=== PATIENT | female | born 1935 | race Caucasian/White ===

== ENCOUNTER 2019-07-13 19:54 | Inpatient (IN) | payer MEDICARE ==
[~2019-07-13] VITALS: Ht 152.4 cm; Wt 58.1 kg
[2019-07-13 20:44] LABS: BASOPHILS # (AUTO) 0.1 (0.0-0.1); BASOPHILS % 0.3 % (0.0-1.0); EOSINOPHILS % 0.3 % (0.0-6.0); HEMATOCRIT 41.7 % (34.2-44.1); HEMOGLOBIN 13.1 g/dL (12.0-16.0); LYMPHOCYTES # (AUTO) 1.3 (1.0-3.2); LYMPHOCYTES % 9.3 % (18.0-39.1); MEAN CORPUSCULAR HEMOGLOBIN 28.1 pg (28-32); MEAN CORPUSCULAR HGB CONC 31.4 g/dL (31-35); MEAN CORPUSCULAR VOLUME 89.3 fL (81-99); MONOCYTES # (AUTO) 1.1 (0.2-0.8); MONOCYTES % 7.5 % (4.4-11.3); NEUTROPHILS # (AUTO) 11.8 (2.1-6.9); NEUTROPHILS % 82.2 % (38.7-80.0); PLATELET COUNT 324 x10e3/uL (140-360); RED BLOOD COUNT 4.67 x10e6/uL (3.6-5.1); RED CELL DISTRIBUTION WIDTH 14.1 % (11.7-14.4)
[2019-07-13 20:54] LABS: INR 0.87; PROTHROMBIN TIME 12.3 seconds (11.9-14.5)
[2019-07-13 20:56] LABS: BILIRUBIN,URINE NEGATIVE (NEGATIVE); CLARITY,URINE SL CLOUDY (CLEAR); KETONES,URINE NEGATIVE (NEGATIVE); LEUKOCYTE ESTERASE ,URINE TRACE (NEGATIVE); NITRITE,URINE NEGATIVE (NEGATIVE); PROTEIN,URINE DIPSTICK NEGATIVE (NEGATIVE); URINE UROBILINOGEN 0.2 mg/dL (0.2 - 1)
[2019-07-13 20:58] LABS: COLOR,URINE YELLOW (YELLOW)
[2019-07-13 21:00] LABS: BACTERIA,URINE MANY /HPF; EPITHELIAL CELLS,URINE FEW /LPF
--- NOTE | 2019-07-13 21:00 | Diagnostic Imaging Report ---
EXAMINATION: CHEST SINGLE (PORTABLE) INDICATION: Cough, fever COMPARISON: None FINDINGS: AP view TUBES and LINES: None. LUNGS/PLEURA: Lungs are well inflated. Pulmonary vascular prominence. Peribronchial cuffing. Hazy opacity in the left lower lung. No pneumothorax. HEART AND MEDIASTINUM: The cardiomediastinal silhouette is borderline enlarged. Curvilinear calcification along the left heart border likely a pericardial calcification. Aortic arch calcifications.. Aortic valve replacement. BONES AND SOFT TISSUES: No acute osseous lesion. Soft tissues are unremarkable. Sternotomy wires in place. UPPER ABDOMEN: No free air under the diaphragm. IMPRESSION: Borderline cardiomegaly and pulmonary vascular congestion Hazy opacity in the left lower lung may be due to atelectasis/scarring, although pneumonia is possible in the proper clinical setting. A trace left pleural effusion is possible. Signed by: Quinton Navarro DO on 07/13/2019 8:57 PM
[2019-07-13] MEDS ORDERED: SODIUM CHLORIDE 0.9% 1000ML 1,000 ML IV STA ×2 (21:02→23:12)
[2019-07-13 21:04] LABS: ALBUMIN 3.2 g/dL (3.5-5.0); ALBUMIN/GLOBULIN RATIO 0.8 (0.8-2.0); ANION GAP 16.4 mmol/L (8-16); CALCIUM 8.4 mg/dL (8.4-10.2); CREATININE, SERUM 0.92 mg/dL (0.57-1.11); POTASSIUM 4.4 mmol/L (3.5-5.1)
[2019-07-13] MEDS: CEFEPIME 1GM/NS 0.9% 50 ML 50 ML IV SCH (21:49)
--- OUTSIDE RECORDS SUMMARY | 2019-07-13 21:58 | XMS REPORT ---
[facility] Address Unknown Phone Unavailable Care Team Providers Care Apple Sorter Name Role Phone Giovanna FLORES Unavailable Unavailable Problems This patient has no known problems. Allergies, Adverse Reactions, Alerts This patient has no known allergies or adverse reactions. Medications This patient has no known medications. Results Test Description Test Time Test Comments Text Results Atomic Results Result Comments CHEST SINGLE (PORTABLE) 2019-07-13 20:53:00 [place] [address] Patient Name: IRVIN TIERNEY MR #: [id number] : 1935 Age/Sex: 84/F Req #: [id number] Adm Physician: Ordered by: ANGELINE FLORES MD Report #: [id number] Location: ER Room/Bed: Procedure: [id number] DX/CHEST SINGLE (PORTABLE) Exam Date: 07/13/19 Exam Time: 2019 REPORT STATUS: Signed EXAMINATION: CHEST SINGLE (PORTABLE) INDIC ATION: Cough, fever COMPARISON: None FINDINGS: AP view TUBES and LINES: None. LUNGS/PLEURA: Lungs are well inflated. Pulmonary vascular prominence. Peribronchial cuffing. Hazy opacity in the left lower lung. No pneumothorax. HEART AND MEDIASTINUM: The cardiomediastinal silhouette is borderline enlarged. Curvilinear calcification along the left heart border likely a pericardial calcification. Aortic arch calcifications.. Aortic valve replacement. BONES AND SOFT TISSUES: No acute osseous lesion. Soft tissues are unremarkable. Sternotomy wires in place. UPPER ABDOMEN: No free air under the diaphragm. IMPRESSION: Borderline cardiomegaly and pulmonary vascular congestion Hazy opacity in the left lower lung may be due to atelectasis/scarring, although pneumonia is possible in the proper clinical setting. A trace left pleural effusion is possible. Signed by: Quinton Navarro DO on 07/13/2019 8:57 PM Dictated By: QUINTON NAVARRO DO 56 Transcribed By: DONG on 07/13/192056 COPY TO: ANGELINE FLORES MD
[2019-07-13] MEDS ORDERED: ACETAMINOPHEN 325 MG TAB PO ONE (22:30)
[2019-07-13] MEDS: AZITHROMYCIN 500MG/NS 250 ML 250 ML IV SCH (22:33)
--- NOTE | 2019-07-13 23:10 | NUR ---
Pt admitted to room 200 via stretcher, from home. Pt 2 nurses and 1 PCT transferred Pt to bed from stretcher with extensive assist x1. Pt Russian speaking alert to name, date, and diagnosis: PNA, sepsis, UTI. Pt pleasant and fidgety, c/o mod pain in left amputee stump, repositioned in bed. Per family/patient legally blind. O2 via NC @2L, sat 96%. Incontinent B/B, wears diaper and Purewick in place. Bowel sounds active x4 quads, last BM 07/12; small, brown, formed. Appetite stable, able to feed self. Sacrum redness, redness abdominal folds, generalized skin irritation. Oriented to room, call laguna within reach. Will continue to monitor.
[2019-07-13] MEDS ORDERED: SODIUM CHLORIDE 0.9% 1000ML 1,000 ML IV ONE (23:15)
[2019-07-13] MEDS ORDERED: FUROSEMIDE INJ 10 MG/ML 2 ML VIAL IV ONE (23:30)
[2019-07-13] MEDS ORDERED: SIMVASTATIN40 MG PO (23:41)
[2019-07-13] MEDS ORDERED: PLAVIX75 MG PO (23:41)
[2019-07-13] MEDS ORDERED: CAPTOPRIL25 MG PO (23:41)
[2019-07-13] MEDS ORDERED: ULTRAM50 MG PO (23:41)
[2019-07-13] MEDS ORDERED: GABAPENTIN300 MG PO (23:41)
[2019-07-13] MEDS ORDERED: NOVOLOG100 UNIT/1 (23:41)
[2019-07-13] MEDS ORDERED: OMEPRAZOLE40 MG (23:41)
[2019-07-13] MEDS ORDERED: DEXTROSE 50% SYRINGE 50 ML IV PRN (23:45)
[2019-07-13] MEDS ORDERED: FUROSEMIDE INJ 10 MG/ML 4 ML VIAL IV ONE (23:45)
--- NOTE | 2019-07-13 23:45 | NUR ---
Patient to receive flu vaccine when afebrile, continuous low grade temp 100.3 with body aches.
[2019-07-13 23:53] VITALS: BP 143/63
[2019-07-14] VITALS (9 sets, daily range): BP systolic 114–182; BP diastolic 48–76
[2019-07-14] MEDS ORDERED: INFLUENZA VIRUS VAC SPLIT INJ 0.5 ML SYR IM SCH (00:28)
[2019-07-14] MEDS ORDERED: FUROSEMIDE INJ 10 MG/ML 4 ML VIAL IV ONE (00:45)
[2019-07-14] MEDS ORDERED: ONDANSETRON HCL 4 MG ORAL DISINTEGRATING TAB PO PRN ×2 (04:15→10:30)
--- NOTE | 2019-07-14 04:15 | NUR ---
Patient c/o generalized pain and nausea. Received order from Nadine MUÑOZ continue home tramadol prn and Zofran 2mg PO q6hrs prn.
[2019-07-14] MEDS: TRAMADOL HCL 50 MG TAB PO PRN ×2 (05:00→14:00)
[2019-07-14 05:10] LABS: BASOPHILS # (AUTO) 0.1 (0.0-0.1); BASOPHILS % 0.4 % (0.0-1.0); EOSINOPHILS % 0.1 % (0.0-6.0); HEMATOCRIT 39.7 % (34.2-44.1); HEMOGLOBIN 12.2 g/dL (12.0-16.0); LYMPHOCYTES # (AUTO) 1.8 (1.0-3.2); LYMPHOCYTES % 11.3 % (18.0-39.1); MEAN CORPUSCULAR HEMOGLOBIN 27.9 pg (28-32); MEAN CORPUSCULAR HGB CONC 30.7 g/dL (31-35); MEAN CORPUSCULAR VOLUME 90.6 fL (81-99); MONOCYTES # (AUTO) 1.3 (0.2-0.8); MONOCYTES % 7.8 % (4.4-11.3); NEUTROPHILS # (AUTO) 12.9 (2.1-6.9); NEUTROPHILS % 79.8 % (38.7-80.0); PLATELET COUNT 250 x10e3/uL (140-360); RED BLOOD COUNT 4.38 x10e6/uL (3.6-5.1)
[2019-07-14 05:31] LABS: ANION GAP 17.6 mmol/L (8-16); BLOOD UREA NITROGEN 21 mg/dL (7-26); BUN/CREATININE RATIO 27 (6-25); CALCIUM 8.2 mg/dL (8.4-10.2); CARBON DIOXIDE 20 mmol/L (22-29); CHLORIDE 103 mmol/L (98-107); CREATININE, SERUM 0.77 mg/dL (0.57-1.11); EST GLOMERULAR FILTRATION RATE > 60 ML/MIN (60-); GLUCOSE 268 mg/dL (74-118); POTASSIUM 3.6 mmol/L (3.5-5.1); SODIUM 137 mmol/L (136-145)
--- NOTE | 2019-07-14 06:40 | NUR ---
Patient c/o severe phantom pains in bilateral stumps. Daughter stated to call doctor for a stronger pain medication. Called Nadine MUÑOZ for orders. Patient refused morphine and Tylenol#3 suggested by Nadine MUÑOZ. Patient stated she does not want anymore pain medication. Patient stated she will wait for next dosage of Tramadol. Patient repositioned. Family at bedside. Call laguna within reach.
[2019-07-14] MEDS: INSULIN LISPRO 100 UNIT/1 ML 3ML VIAL SQ SCH ×4 (07:30→19:56)
[2019-07-14] MEDS ORDERED: ACETAMINOPHEN 325 MG TAB PO PRN ×2 (08:15→10:30)
[2019-07-14] MEDS: ACETAMINOPHEN 325 MG TAB PO PRN (09:30)
[2019-07-14] MEDS: AZITHROMYCIN 500MG/NS 250 ML 250 ML IV SCH (09:47)
--- NOTE | 2019-07-14 10:47 | History and Physical ---
PRIMARY CARE PHYSICIAN: Dr. Eliazar Carnes. CHIEF COMPLAINT: Bilateral stump pain. Cough, fever, pneumonia, and urinary tract infection. HISTORY OF PRESENT ILLNESS: The patient is an 84-year-old female with urinary incontinent. She had right BKA, left AKA, chronic pain, came in with increasing cough, fever, and shortness of breath. The patient's chest x-ray shown possible pneumonia. She has also had urinary tract infection. Lactic acid is elevated. The patient is otherwise stable as planned. She is comfortable. She is admitted for further treatment. 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 Peripheral vascular disease, hypertension, and dyslipidemia. PAST SURGICAL HISTORY: Right BKA and left AKA. SOCIAL HISTORY: The patient does not smoke or use alcohol. No regular drugs. ALLERGIES: NO KNOWN ALLERGIES. HOME MEDICATIONS: List is reviewed. REVIEW OF SYSTEMS: As mentioned above. PHYSICAL EXAMINATION: VITAL SIGNS: Temperature is 98, blood pressure 114/48, pulse rate is 95, and respirations 18. GENERAL: The patient is not in acute distress. She is awake. HEENT: Normocephalic and atraumatic. Pupils reactive. Anicteric. NECK: Supple grossly. PULMONARY: Diminished breath sounds with some courses and rhonchi. CARDIOVASCULAR: S1, S2. Regular rate and rhythm. ABDOMEN: Soft, no distention. EXTREMITIES: Right BKA and left AKA. NEUROLOGIC: No focal deficit. LABORATORY DATA: Sodium is 137, potassium 3.6, chloride 103, bicarb 20, BUN 21, creatinine 0.7, glucose 268. WBC is 16, hemoglobin 12.8, hematocrit 39.7, and platelets is 250. Chest x-ray, possible bronchitis, pneumonia. Urinalysis, leukocyte esterase trace, 2+ glucose, many bacteria. Urine culture preliminary gram-negative bacilli. IMPRESSION: 1. Sepsis with lactic acidosis and low-grade fever. No shock. 2. Urinary tract infection. 3. Possible pneumonia. 4. Multiple baseline problems. PLAN: IV antibiotics. Fluid already given. We will resume home medication. Check urine and blood culture sensitivity. We will follow up on the patient's pain control. MD RONALD Rubio/JUDY /[id number]
[2019-07-14] MEDS: SENNOSIDES 8.6 MG TAB PO SCH ×2 (14:08→16:23)
[2019-07-14] MEDS: GABAPENTIN 300 MG CAP PO SCH ×2 (16:23→20:08)
[2019-07-14] MEDS: CAPTOPRIL 25 MG TAB PO SCH (16:23)
[2019-07-14] MEDS: HYDROCODONE/APAP 5MG-325MG TAB PO PRN (20:08)
[2019-07-14] MEDS: SIMVASTATIN 40 MG TAB PO SCH (20:08)
[2019-07-14] MEDS: CEFEPIME 1GM/NS 0.9% 50 ML 50 ML IV SCH (22:39)
[2019-07-15] VITALS (9 sets, daily range): BP systolic 126–146; BP diastolic 54–90
[2019-07-15] MEDS: HYDROCODONE/APAP 5MG-325MG TAB PO PRN (04:47)
[2019-07-15 05:14] LABS: BASOPHILS # (AUTO) 0.1 (0.0-0.1); BASOPHILS % 0.4 % (0.0-1.0); EOSINOPHILS # (AUTO) 0.1 (0.0-0.4); EOSINOPHILS % 0.6 % (0.0-6.0); HEMATOCRIT 34.4 % (34.2-44.1); HEMOGLOBIN 10.8 g/dL (12.0-16.0); LYMPHOCYTES # (AUTO) 2.2 (1.0-3.2); LYMPHOCYTES % 16.7 % (18.0-39.1); MEAN CORPUSCULAR HEMOGLOBIN 28.1 pg (28-32); MEAN CORPUSCULAR HGB CONC 31.4 g/dL (31-35); MEAN CORPUSCULAR VOLUME 89.6 fL (81-99); MONOCYTES # (AUTO) 1.2 (0.2-0.8); MONOCYTES % 8.9 % (4.4-11.3); NEUTROPHILS # (AUTO) 9.7 (2.1-6.9); NEUTROPHILS % 73.1 % (38.7-80.0); PLATELET COUNT 221 x10e3/uL (140-360); RED BLOOD COUNT 3.84 x10e6/uL (3.6-5.1); RED CELL DISTRIBUTION WIDTH 14.2 % (11.7-14.4)
[2019-07-15 05:30] LABS: ANION GAP 12.5 mmol/L (8-16); BLOOD UREA NITROGEN 19 mg/dL (7-26); BUN/CREATININE RATIO 28 (6-25); CALCIUM 7.9 mg/dL (8.4-10.2); CARBON DIOXIDE 23 mmol/L (22-29); CHLORIDE 101 mmol/L (98-107); CREATININE, SERUM 0.69 mg/dL (0.57-1.11); EST GLOMERULAR FILTRATION RATE > 60 ML/MIN (60-); GLUCOSE 212 mg/dL (74-118); POTASSIUM 3.5 mmol/L (3.5-5.1); SODIUM 133 mmol/L (136-145)
[2019-07-15] MEDS: INSULIN LISPRO 100 UNIT/1 ML 3ML VIAL SQ SCH ×4 (08:00→21:00)
[2019-07-15] MEDS: GABAPENTIN 300 MG CAP PO SCH ×3 (08:20→20:35)
[2019-07-15] MEDS: AZITHROMYCIN 500MG/NS 250 ML 250 ML IV SCH (08:20)
[2019-07-15] MEDS: SENNOSIDES 8.6 MG TAB PO SCH ×2 (08:21→16:40)
[2019-07-15] MEDS: CLOPIDOGREL BISULFATE 75 MG TAB PO SCH (08:21)
[2019-07-15] MEDS: PANTOPRAZOLE SOD 40 MG TABEC PO SCH (08:21)
[2019-07-15] MEDS: CAPTOPRIL 25 MG TAB PO SCH (08:30)
[2019-07-15] MEDS: TRAMADOL HCL 50 MG TAB PO PRN (09:01)
[2019-07-15] MEDS: LORATADINE 10 MG TAB PO SCH (09:58)
[2019-07-15] MEDS: BENZONATATE 100 MG CAP PO SCH ×3 (09:58→20:35)
[2019-07-15] MEDS ORDERED: GUAIFENESIN/CODEINE 10 ML CUP PO PRN (10:00)
[2019-07-15] MEDS ORDERED: ALBUTEROL/IPRATROPIUM 3 ML NEB NEB PRN (10:00)
--- NOTE | 2019-07-15 10:44 | NUR ---
WOUND CARE NURSE INITIAL CONSULTATION. 84 YEAR OLD FEMALE ADMITTED TO [facility] WITH PNEUMONIA, UTI AND SEVERE SEPSIS. HEAD TO TOE SKIN ASSESSMENT PERFORMED TODAY. PT PRESENTS WITH BLANCHABLE REDNESS TO SACRUM, ALLEVYN FOAM IN PLACE. HEALED OLD RIGHT BKA AND LEFT AKA. THERE ARE NO OTHER AREAS OF CONCERN NOTED AT THIS TIME. NO S/S OF INFECTION PRESENT. PT REQUIRES MINIMAL ASSISTANCE TO REPOSITION. PT AND FAMILY AT BEDSIDE EDUCATED ON PLAN OF CARE AND PRESSURE RELIEF. INSTRUCTED TO REPOSITION EVERY 2 HOUR AND LIMIT CHAIR TIME AT HOME TO NO MORE THAT TWO HOURS AT A TIME. BOTH STATE UNDERSTANDING. LABS: WBC: 13.27 HGB: 10.8 ALB: 3.2 RECOMMENDATIONS: REPOSITION PT EVERY TWO HOURS AND PRN. CONTINUE WITH ALLEVYN FOAM TO SACRUM FOR ULCER PREVENTION AND MONITOR DAILY. CONTINUE WITH ALTERNATING LOW AIR LOSS MATTRESS. THANKS FOR THIS CONSULTATION. Addendum: 07/15/19 at 1051 by Kat Bhatia RN Amended: Links added.
[2019-07-15] MEDS: ALBUTEROL/IPRATROPIUM 3 ML NEB NEB SCH ×2 (11:40→15:14)
[2019-07-15] MEDS: GUAIFENESIN 200 MG/10 ML UDC PO SCH ×3 (12:04→23:49)
--- NOTE | 2019-07-15 13:04 | Diagnostic Imaging Report ---
EXAM: CT Chest WITHOUT intravenous contrast 07/15/2019 9:46 AM INDICATION: Shortness of breath COMPARISON: Chest radiograph of 07/13/2019 TECHNIQUE: Chest was scanned utilizing a multidetector helical scanner from the lung apex through the level of the adrenal glands without administration of IV contrast. Coronal and sagittal reformations were obtained. Routine protocol was performed. IV CONTRAST: None RADIATION DOSE: Total DLP: 499.5 mGy*cm. Dose modulation, iterative reconstruction, and/or weight based adjustment of the mA/kV was utilized to reduce the radiation dose to as low as reasonably achievable. COMPLICATIONS: None FINDINGS: LINES/ TUBES: None. LUNGS AND AIRWAYS: The central airways are patent. No focal consolidation or pulmonary edema. Bibasilar left greater than right dependent subsegmental atelectasis. No suspicious pulmonary nodules. PLEURA: No pleural effusion or pneumothorax. HEART AND MEDIASTINUM: 1.5 cm hypodense nodule in the left thyroid lobe. No supraclavicular lymphadenopathy. No mediastinal or hilar lymphadenopathy. Mild multichamber cardiomegaly. No pericardial effusion. Atherosclerotic calcifications of the coronary arteries, thoracic aorta and great vessels. UPPER ABDOMEN: Limited noncontrast images of the upper abdomen demonstrate punctate calcified granulomas in the liver. No other focal abnormality of the partially visualized liver, spleen, pancreas, adrenals. 3 mm nonobstructive left upper pole renal calculus. BONES: The visualized bony thorax is within normal limits. Median sternotomy wires intact. SOFT TISSUES: Unremarkable. IMPRESSION: No focal pneumonia or pulmonary edema. Mild cardiomegaly. 1.5 cm left thyroid nodule. Recommend follow-up dedicated thyroid ultrasound for further evaluation. Atherosclerotic arterial calcifications including of the coronary arteries. Signed by: Sydni Goncalves MD on 07/15/2019 1:01 PM
[2019-07-15] MEDS: FLUTICASONE PROPIONATE NASAL SPRAY NS SCH (17:33)
[2019-07-15] MEDS: SIMVASTATIN 40 MG TAB PO SCH (20:35)
[2019-07-15] MEDS: CEFEPIME 1GM/NS 0.9% 50 ML 50 ML IV SCH (20:35)
[2019-07-16] VITALS (7 sets, daily range): BP systolic 119–184; BP diastolic 55–82
[2019-07-16] MEDS: GUAIFENESIN 200 MG/10 ML UDC PO SCH ×3 (05:00→17:52)
[2019-07-16] MEDS: ALBUTEROL/IPRATROPIUM 3 ML NEB NEB SCH ×2 (07:00→14:10)
--- NOTE | 2019-07-16 07:00 | NUR ---
RCD PT AT BED PT IS ALERT AND ORIENTED PT RESTING ON BED NO SIGNS OF ANY DISTRESS NOTED IV PATENT BY SALINE FLUSH BED LOW AND LOCKED CALL LIGHT IN REACH
[2019-07-16] MEDS: INSULIN LISPRO 100 UNIT/1 ML 3ML VIAL SQ SCH ×4 (07:30→20:30)
[2019-07-16] MEDS: BENZONATATE 100 MG CAP PO SCH ×3 (09:00→20:30)
[2019-07-16] MEDS: AZITHROMYCIN 500MG/NS 250 ML 250 ML IV SCH (09:00)
[2019-07-16] MEDS: SENNOSIDES 8.6 MG TAB PO SCH ×2 (09:00→17:00)
[2019-07-16] MEDS: PANTOPRAZOLE SOD 40 MG TABEC PO SCH (09:00)
[2019-07-16] MEDS: FLUTICASONE PROPIONATE NASAL SPRAY NS SCH ×2 (09:00→17:00)
[2019-07-16] MEDS: CLOPIDOGREL BISULFATE 75 MG TAB PO SCH (09:00)
[2019-07-16] MEDS: GABAPENTIN 300 MG CAP PO SCH ×3 (09:00→20:30)
[2019-07-16] MEDS: LORATADINE 10 MG TAB PO SCH (09:00)
[2019-07-16] MEDS ORDERED: SODIUM CHLORIDE 0.9% 250ML 250 ML ONE (10:27)
--- NOTE | 2019-07-16 18:44 | NUR ---
PT RESTING ON BED BED SIDE REPORT GIVEN TO ONCOMING NURSE
--- NOTE | 2019-07-16 19:00 | NUR ---
Patient visited in room during nursing rounds. Patient alert and oriented x3. Daughter at bedside. Pt on bedrest. Pt with Left AKA and Right BKA. Pt legally blind on both eyes. V/S stable. Pt on scheduled IV antibiotics. Call laguna within reach.
[2019-07-16] MEDS: SIMVASTATIN 40 MG TAB PO SCH (20:30)
[2019-07-16] MEDS: CEFEPIME 1GM/NS 0.9% 50 ML 50 ML IV SCH (20:40)
[2019-07-16] MEDS: TRAMADOL HCL 50 MG TAB PO PRN (20:46)
--- NOTE | 2019-07-16 23:30 | NUR ---
Pt c/o lower abdominal pressure. Bladder scan performed and revealed > 1000 ml. Daughter at bedside. Pt and daughter informed possibility of early catheter insertion. Will call and obtain order from Dr. Graves.
--- NOTE | 2019-07-16 23:36 | NUR ---
Called Dr. Graves and informed pt c/o lower abd pressure and bladder scan revealed > 1L. MD ordered to place early catheter.
--- NOTE | 2019-07-16 23:45 | NUR ---
Floyd catheter (16fr) inserted. Urine output was clear yellow urine. Total output at this time was 1,300ml. Pt stated she felt immediate relief.
[2019-07-17] MEDS: ACETAMINOPHEN 325 MG TAB PO PRN (00:15)
[2019-07-17 00:18] VITALS: BP 121/60
[2019-07-17 04:15] VITALS: BP 102/51
[2019-07-17] MEDS: GUAIFENESIN 200 MG/10 ML UDC PO SCH ×3 (06:29→11:48)
[2019-07-17 07:41] VITALS: BP 157/67
[2019-07-17] MEDS: INSULIN LISPRO 100 UNIT/1 ML 3ML VIAL SQ SCH ×2 (07:54→11:58)
[2019-07-17] MEDS: BENZONATATE 100 MG CAP PO SCH ×2 (08:13→15:07)
[2019-07-17] MEDS: FLUTICASONE PROPIONATE NASAL SPRAY NS SCH (08:13)
[2019-07-17] MEDS: GABAPENTIN 300 MG CAP PO SCH ×2 (08:13→15:07)
[2019-07-17] MEDS: AZITHROMYCIN 500MG/NS 250 ML 250 ML IV SCH (08:13)
[2019-07-17] MEDS: LORATADINE 10 MG TAB PO SCH (08:13)
[2019-07-17] MEDS: PANTOPRAZOLE SOD 40 MG TABEC PO SCH (08:13)
[2019-07-17] MEDS: CLOPIDOGREL BISULFATE 75 MG TAB PO SCH (08:13)
[2019-07-17 08:14] VITALS: BP 157/67
--- NOTE | 2019-07-17 08:14 | NUR ---
Patient up in bed, eating breakfast, not in any distress, early is intact
[2019-07-17] MEDS: TRAMADOL HCL 50 MG TAB PO PRN (08:45)
[2019-07-17] MEDS: SENNOSIDES 8.6 MG TAB PO SCH (09:00)
--- NOTE | 2019-07-17 10:40 | NUR ---
Visit made by the Spiritual Care Department Pastoral Visitor, Lauren Ceja. PV provided prayer, hospitality, and communion. Pastoral Visitor informed pt/family of the scope of Surgical Device Sales Representative Services and availability. CHARLEY BUSTOS [employer]erry[employer] Spiritual Care Department O: [phone] Pager: [phone] ([phone] number calling from)
[2019-07-17] MEDS: CEPHALEXIN 500 MG CAP PO SCH ×2 (11:11→14:00)
[2019-07-17 11:49] VITALS: BP 120/69
--- NOTE | 2019-07-17 13:42 | NUR ---
Referral for home health sent to [facility]. / Referral for DME (sliding board and BSC) sent to [facility]. Rodrigo banegas [facility] was notified of referral.
--- NOTE | 2019-07-17 14:04 | NUR ---
Received call from [facility] that they are not in network with pt's insurance. Referral was forwarded to [facility]. Casey with [facility] was notified. Stated that they will have to get insurance approval and DME will have to be delivered to pt's house. CM updated pt's daughter at bedside.
--- NOTE | 2019-07-17 14:08 | NUR ---
Received call from Mey Foss with [facility]. States they will accept pt. Informed her anticipated discharge for today. They will see pt tomorrow. HOME HEALTH DISCHARGE NOTE PATIENT ADDRESS WHERE SERVICE WILL BE RECEIVED: [facility] [place] [address] [place] [address] PATIENT CONTACT NUMBER: [phone] NAME OF HOME HEALTH COMPANY: [facility] TELEPHONE/FAX NUMBER OF COMPANY: P [phone] / F [phone] ADDRESS OF COMPANY: [address] [place] [address] [place] [address] SERVICES TO RECEIVE: SN, PT, OT ANTICIPATED DATE SERVICES WILL BEGIN: July 18, 2019 Please call the company above if you have not received a call to schedule a home visit within 24 hours of discharge.
--- NOTE | 2019-07-17 15:30 | NUR ---
DR Moctezuma here for rounds stated patient can go home with early catheter and follow up with him in 2 weeks for urodynamics, Explained to daughter regarding early care, she verbalized understanding, handout given
[2019-07-17 15:59] VITALS: BP 141/65
[2019-07-17] MEDS ORDERED: KEFLEX500 MG PO (17:08)
[2019-07-17] MEDS ORDERED: SENNA LAXATIVE8.6 MG PO (17:08)
[2019-07-17] MEDS ORDERED: CLARITIN-D 241 EACH PO (17:09)
[2019-07-17] MEDS ORDERED: TESSALON PERLE100 MG PO (17:10)
--- NOTE | 2019-07-17 17:32 | Consultation ---
DATE OF CONSULTATION: 07/17/2019 Urology Consultation. REASON FOR CONSULTATION: Urinary retention for 1300 mL. HISTORY OF PRESENT ILLNESS: Brandy Carnes is an 84-year-old woman who denies previous urological evaluation. The patient has had both urge and stress type urinary incontinence. The patient was currently admitted for pneumonia. She had some constipation and this was managed and she had a bowel movement yesterday. Yesterday, however, she complained of severe lower abdominal pain. Floyd catheter was placed revealing 1300 mL of urinary retention. The patient denies previous history of urinary tract infections, yet she has had urinary tract infection during this hospitalization. She denies any previous urolithiasis or any urological evaluation. PAST MEDICAL AND SURGICAL HISTORY: 1. Bilateral amputee with right BKA and left AKA. 2. Diabetes mellitus. 3. Diabetic neuropathy. 4. Peripheral vascular disease. 5. Hypertension. 6. Dyslipidemia. 7. Hypertension. 8. Hypercholesterolemia. 9. Left eye blindness. 10. Status post right eye cataract. 11. 2, para 2, by spontaneous vaginal delivery. SOCIAL HISTORY: The patient denies smoking, ethanol, or drug use. She is disabled homemaker. ALLERGIES: NONE KNOWN. CURRENT MEDICATIONS: Please refer to the MAR. REVIEW OF SYSTEMS: Discussed as above in history of present illness and past medical history, otherwise negative for all systems. PHYSICAL EXAMINATION: GENERAL: Elderly woman, sitting up in bed, in no apparent distress. She is currently afebrile. VITAL SIGNS: Currently stable. ABDOMEN: Soft, nondistended, nontender without costovertebral angle tenderness. Kidneys not palpable without hepatosplenomegaly. No obvious evidence of hernia. GENITOURINARY: There is a Floyd catheter in place draining clear yellow urine out. Internal examination is deferred. For the remaining physical examination systems, please refer to the admission and history and physical on the chart. LABORATORY STUDIES: There is no urologically significant or radiographic studies in the computer. Urine culture shows an almost pansensitive E. coli, resistant only to ampicillin and Unasyn, but sensitive to everything else. White blood cell count of 13,270, hemoglobin 10.8, and platelets 221,000. The patient's creatinine is normal at 0.69. Her sodium is slightly low at 133. The patient's calcium is slightly low at 7.9. Her sugars have been elevated. Urinalysis significant for 6-10 rbcs, 11-20 wbcs and many bacteria. ASSESSMENT: 1. Mixed type urinary incontinence. 2. Urinary retention for 1300 mL. 3. Urinary tract infection. 4. Floyd catheter in situ. 5. Leukocytosis. 6. Anemia. 7. Hyponatremia. 8. Hypocalcemia. 9. Microhematuria. 10. Probable neurogenic bladder due to peripheral neuropathy from diabetes. PLAN: 1. Leave the Floyd catheter in place at present time. 2. The patient will be discharged with a Floyd catheter in place. 3. From the urological standpoint, the patient may be discharged on culture specific antibiotics with a Floyd catheter in place to follow up for urodynamic study if technically possible to do in the office. 4. I discussed this plan with the patient's daughter. Thank you very much for involving us in the care of your patient. We will be happy to follow her along with you as well as an outpatient. Chad Moctezuma MD [place]/MODL /[id number] cc: Eliazar Carnes MD
--- NOTE | 2019-07-17 17:40 | NUR ---
patient discharged home, Alert with no distress, IV canula removed, no ss of infiltration, early catheter is intact, prescription given, helped to transfer patient to family's private car.
== END 2019-07-17 17:44 | disposition home or self-care (01) | DRG 871 ==
LOC: ER 19:54 → ERHOLD 21:57 → MED/SURG2 23:00
PROVIDERS: ADMIT Internal Medicine; ATTEND Internal Medicine
DX: A41.9 Sepsis, unspecified organism (principal); J18.9 Pneumonia, unspecified organism; N39.0 Urinary tract infection, site not specified; E87.2 Acidosis; Z89.511 Acquired absence of right leg below knee; T87.89 Other complications of amputation stump; Z89.612 Acquired absence of left leg above knee; G89.29 Other chronic pain; E11.40 Type 2 diabetes mellitus with diabetic neuropathy, unspecified; Z79.4 Long term (current) use of insulin; E11.51 Type 2 diabetes mellitus with diabetic peripheral angiopathy without gangrene; E78.00 Pure hypercholesterolemia, unspecified; H54.62 Unqualified visual loss, left eye, normal vision right eye; N39.46 Mixed incontinence; R31.29 Other microscopic hematuria; N31.8 Other neuromuscular dysfunction of bladder; E83.51 Hypocalcemia; R33.9 Retention of urine, unspecified; D64.9 Anemia, unspecified; J20.9 Acute bronchitis, unspecified
CPT/HCPCS: 36415; 71250; 80048; 82948; 83605; 85025; 87186; 93005; 94640; 96372; 97139; J0456; J0692; J1940; J7050; Q0162